=== PATIENT | female | born 1985 | race African-American/Black ===

== ENCOUNTER 2017-05-25 12:20 | Emergency (ER) | payer MEDICAID, OTHER ==
[~2017-05-25] VITALS: Ht 162.6 cm; Wt 90.0 kg
[2017-05-25 12:41] VITALS: BP 114/63
== END 2017-05-25 17:33 | disposition left against medical advice (07) ==
LOC: ER 14:57
DX: Z53.21 Procedure and treatment not carried out due to patient leaving prior to being seen by health care provider (principal)

== ENCOUNTER 2017-05-29 09:07 | Emergency (ER) | payer MEDICAID, OTHER ==
[~2017-05-29] VITALS: Ht 162.6 cm; Wt 113.0 kg
[2017-05-29] MEDS ORDERED: SODIUM CHLORIDE 0.9% 1,000 ML IV ONE (10:39)
[2017-05-29] MEDS ORDERED: METOCLOPRAMIDE HCL 10MG/2ML VIAL IV ONE (10:45)
[2017-05-29] MEDS ORDERED: KETOROLAC 15MG/ML VIAL IV ONE (10:45)
[2017-05-29 11:40] LABS: HCG SCREEN NEGATIVE
[2017-05-29 13:00] VITALS: BP 110/63
== END 2017-05-29 13:09 | disposition home or self-care (01) ==
LOC: ER 10:20
DX: R51 Headache (principal); R11.0 Nausea; M79.644 Pain in right finger(s); M79.89 Other specified soft tissue disorders; R05 Cough
CPT/HCPCS: 70450; 73130; 84703; 96361; 96374; 96375; 99285; J1885; J2765; J7030; Z7610